=== PATIENT | female | born 1950 ===

== ENCOUNTER 2017-03-26 06:29 | Day surgery (SDC) | payer BC ==
--- NOTE | 2017-03-26 07:06 | PCM.PREANE ---
Preanesthetic Assessment - Anesthesia/Transfusion/Family Hx Anesthesia History: Prior Anesthesia Without Reaction Other Type of Anesthesia Reaction Comment: REports with breast cyst, anesthes reported had to Hold my Chin Family History of Anesthesia Reaction: No Transfusion History: No Prior Transfusion(s) Intubation History: Unknown - Review of Systems General: No Symptoms Pulmonary: No Symptoms Cardiovascular: No Symptoms Gastrointestinal: No Symptoms Neurological: No Symptoms Other: Reports: None - Physical Assessment O2 Sat by Pulse Oximetry: 94 Respiratory Rate: 16 Vital Signs: Last Vital Signs Temp 36.4 C 03/26/17 06:47 Pulse 63 03/26/17 06:47 Resp 16 03/26/17 06:47 BP 137/82 03/26/17 06:47 Pulse Ox 94 L 03/26/17 06:47 Height: 1.52 m Weight: 78.925 kg ASA Class: 2 Mental Status: Alert & Oriented x3 Airway Class: Mallampati = 2 Dentition: Reports: Normal Dentition Thyro-Mental Finger Breadths: 3 Mouth Opening Finger Breadths: 3 ROM/Head Extension: Full Lungs: Clear to Auscultation, Normal Respiratory Effort Cardiovascular: Regular Rate, Regular Rhythm - Allergies Allergies/Adverse Reactions: Allergies Allergy/AdvReac Type Severity Reaction Status Date / Time No Known Allergies Allergy Verified 03/24/17 12:43 - Blood Blood Available: No - Anesthesia Plan Pre-Op Medication Ordered: None - Acknowledgements Anesthesia Type Planned: MAC Pt an Appropriate Candidate for the Planned Anesthesia: Yes Alternatives and Risks of Anesthesia Discussed w Pt/Guardian: Yes Pt/Guardian Understands and Agrees with Anesthesia Plan: Yes PreAnesthesia Questionnaire Cardiovascular History: Reports: High Cholesterol, Hypertension, Other (See Below) (h/o palpitations) Respiratory History: Reports: Other (See Below) Other Respiratory History: 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 due to anatomy of back of throat during procedure Gastrointestinal History: Reports: None Genitourinary History: Reports: None VIDEO SYSTEMS ENGINEER History: Reports: Musculoskeletal History: Reports: Arthritis Neurological History: Reports: Brain Injury Psychiatric History: Reports: None, Other (See Below) (h/o depression) Endocrine/Metabolic History: Reports: Obesity/BMI 30+ Oncologic (Cancer) History: Dermatologic History: Reports: None - Past Surgical History Head Surgeries/Procedures: Reports: None HEENT Surgical History: Reports: Tonsillectomy GI Surgical History: Reports: Appendectomy, Cholecystectomy, Colonoscopy Female Surgical History: Reports: Breast Biopsy, Section (x2), Hysterectomy, Oophorectomy Neurological Surgical History: Reports: Lumbar Spine Other Neurological Surgeries/Procedures: hx back surgery Musculoskeletal Surgical History: Reports: Shoulder Surgery, Other (See Below) Other Musculoskeletal Surgeries/Procedures:: Arthroscopic shoulder surgery Right , foot surgery Dermatological Surgical History: Reports: Plastic Surgical Reconstruction/ Repair (abdominoplasty), Other (See Below) - SUBSTANCE USE Smoking Status *Q: Never Smoker Recreational Drug Use History: No - HOME MEDS Home Medications: Home Meds Aspirin [Halfprin] 1 tab PO DAILY 05/24/15 [History] Cholecalciferol (Vitamin D3) [Vitamin D3] 1 tab PO DAILY 05/24/15 [History] Losartan/Hydrochlorothiazide [Losartan-HCTZ 100-12.5 MG] 1 tab PO DAILY [History] Multivitamin [Multi-Day Vitamins] 1 tab PO DAILY 05/24/15 [History] Celecoxib [CeleBREX] 200 mg PO DAILY 03/24/17 [History] Ibuprofen 4 tab PO Q8H PRN 03/24/17 [History] - CURRENT (IN HOUSE) MEDS Current Meds: Current Medications Hydrocodone Bitart/Acetaminophen (Raymond 325-5 Mg) 1 tab PO Q4H PRN PRN Reason: Pain Bupivacaine HCl (Sensorcaine-Mpf 0.25%) 10 ml INJECT ONETIME ONE Stop: 03/26/17 08:01 Cefazolin Sodium/Dextrose 2 gm (/ Premix) 50 mls @ 100 mls/hr IV ONETIME ONE Stop: 03/26/17 08:29 Lactated Ringer's (Ringers, Lactated) 1,000 mls @ 125 mls/hr IV ASDIRECTED [facility]
[2017-03-26] MEDS ORDERED: diphenhydrAMINE 50 MG/ML SDV ONE (07:07)
[2017-03-26] MEDS ORDERED: Lidocaine 2% 5 ML SDV ONE (07:07)
[2017-03-26] MEDS ORDERED: Propofol 200 MG/20 ML SDV ONE (07:08)
[2017-03-26] MEDS ORDERED: fentaNYL 100 MCG/2 ML SDV ONE (07:08)
[2017-03-26] MEDS ORDERED: Midazolam 1 MG/ML 2 ML SDV ONE (07:08)
[2017-03-26] MEDS ORDERED: Bupivacaine 25%/EPINEPHrine/PF 30 ML ONE (07:13)
[2017-03-26] MEDS ORDERED: Lactated Ringers 1,000 ML IV SCH (08:00)
[2017-03-26] MEDS ORDERED: ceFAZolin 2 GM in Premix Bag 1 BAG IV ONE (08:00)
[2017-03-26] MEDS ORDERED: Bupivacaine 0.25% 10 ML SDV INJECT ONE (08:00)
--- NOTE | 2017-03-26 08:49 | PCM.OPNOTE ---
- General Post-Op/Procedure Note Date of Surgery/Procedure: 03/26/17 Operative Procedure(s): right carpal tunnel release Pre Op Diagnosis: right carpal tunnel syndrome Post-Op Diagnosis: Same Anesthesia Technique: Local, MAC Primary Surgeon: Laura Lee Sales Donor Recruitment Representative: Skylar Constantino Complications: None Condition: Good
[2017-03-26] MEDS ORDERED: Acetaminophen/HYDROcodone 325-5 MG Tab PO PRN (09:00)
[2017-03-26 13:44] VITALS: BP 130/66
--- NOTE | 2017-03-27 18:59 | OR ---
SURGEON: JAZMIN ROSA MD DATE OF PROCEDURE: 03/26/2017 PREOPERATIVE DIAGNOSIS: Right carpal tunnel syndrome and right thumb DIP joint ganglion. POSTOPERATIVE DIAGNOSIS: Right carpal tunnel syndrome and right thumb DIP joint ganglion. PROCEDURE: Right carpal tunnel release and excision of right thumb DIP joint ganglion. CONVEYANCER: PHILOMENA Friedman ANESTHESIA: Local MAC. INDICATIONS: Ms. Baca is a 66-year-old female with a carpal tunnel problem on the right hand and a DIP joint ganglion on the right thumb that has been longstanding. Risks and benefits of excision and carpal tunnel release were discussed with her and she was in agreement to proceed. Risks were including, but not limited to, bleeding, infection, damage to underlying or overlying structures, possible need for future interventions, and possible scarring. PROCEDURE IN DETAILS: After informed consent was obtained and placed on the chart, the patient was brought to the operating theater and laid in the supine position. After adequate local MAC anesthetic was obtained, the area was prepped and draped and a time-out was completed to confirm side and site. The arm was then exsanguinated and tourniquet was inflated to 200 mmHg. Dissection was first carried on the transverse carpal ligament, which was incised using a 15 blade through skin, subcutaneous tissues until breach of the ligament. Dissection was carried distally and proximally under Littler scissors to ensure complete release. Once adequately released, the wound was copiously irrigated and the skin was closed using 5-0 nylon stitch in a horizontal mattress fashion. The patient tolerated this well. Attention was then paid to the DIP joint ganglion. A curvilinear incision was made over the lateral aspect of the DIP joint of the thumb. Dissection was carried down to the joint itself and a large bone spur was noted to be present. The ganglion was excised and sent for pathology. The bone spur was rongeured and the joint mouse connected underneath was also removed. The joint was copiously irrigated, and then the skin was closed using a 5-0 nylon stitch in a horizontal mattress fashion. The patient tolerated the procedure well, and all counts and needles were correct at the end of the case. The patient was dressed with Xeroform, fluffs, and a Kerlix gauze dressing and a 2-inch Vic wrap. FOLLOWUP INSTRUCTIONS: The patient will see us in 10 to 14 days and was given a prescription for tramadol. HEGGTMICHAEL / DOMINICK /[id number]
== END 2017-03-26 11:00 | disposition home or self-care (01) ==
LOC: MW.SDS 06:29
PROVIDERS: ATTEND Plastic Surgery
DX: G56.03 Carpal tunnel syndrome, bilateral upper limbs (principal); M65.841 Other synovitis and tenosynovitis, right hand; M17.0 Bilateral primary osteoarthritis of knee; F32.9 Major depressive disorder, single episode, unspecified; I10 Essential (primary) hypertension; E88.81 Metabolic syndrome and other insulin resistance; E66.9 Obesity, unspecified; Z79.82 Long term (current) use of aspirin; Z79.899 Other long term (current) drug therapy; Z90.49 Acquired absence of other specified parts of digestive tract; Z90.710 Acquired absence of both cervix and uterus; Z90.89 Acquired absence of other organs; Z98.890 Other specified postprocedural states; Z68.34 Body mass index [BMI] 34.0-34.9, adult
CPT/HCPCS: 26160; 64721; 88304; J1200; J2250; J3010; J7120; 01810; J2704